=== PATIENT | female | born 1980 | race Two or more races ===

== ENCOUNTER 2024-06-17 12:27 | Emergency (ER) | payer OTHER ==
[~2024-06-17] VITALS: Ht 165.1 cm; Wt 97.5 kg
[2024-06-17] MEDS ORDERED: FAMOtidine 10 MG/ML (4ML VIAL) IV STA (13:31)
[2024-06-17] MEDS ORDERED: 0.9 % SODIUM CHLORIDE 1,000 ML IV STA (13:31)
[2024-06-17] MEDS ORDERED: FAMOTIDINE/PF 20 MG/2 ML VIAL ONE (14:05)
[2024-06-17 15:43] LABS: HEMATOCRIT 42.6 % (36.0-45.00); HEMOGLOBIN 14.3 g/dL (12.0-15.00); MEAN CELL VOLUME 87.4 fL (80.00-100.00); MEAN CORPUSCULAR HEMOGLOBIN 29.2 pg (27.00-32.0); MEAN CORPUSCULAR HGB CONC 33.5 g/dl (32.0-36.0); PLATELET COUNT 209 K/uL (150-450); RED BLOOD COUNT 4.88 M/uL (4.00-6.00); RED CELL DISTRIBUTION WIDTH 12.4 % (11.5-14.5)
[2024-06-17 16:21] LABS: CALCIUM 9.1 mg/dL (8.5-10.1); CREATININE SERUM 0.73 mg/dL (0.55-1.02); GFR 87.43; POTASSIUM 3.64 mEq/L (3.5-5.1)
[2024-06-17 17:45] LABS: URINE APPEARANCE Clear; URINE BILIRRUBIN Negative (NEGATIVE); URINE BLOOD Large; URINE COLOR Dark Yellow; URINE GLUCOSE Negative (NEGATIVE); URINE KETONE 15 (NEGATIVE); URINE LEUKOCYTE Negative; URINE NITRATE Negative; URINE PROTEIN >=1000 (NEGATIVE); URINE UROBILINOGEN 0.2 E.U./dl
[2024-06-17 17:51] LABS: URINE EPITHELIAL CELLS 34.1 uL (0.0-38.8); URINE RBC 663.3 uL (0.0-20.8); URINE WBC 43.8 uL (0.0-23.2)
[2024-06-17 18:12] LABS: URINE CAST 0.58 uL (0.0-1.40)
== END 2024-06-17 19:15 | disposition home or self-care (01) ==
LOC: ER 12:29
PROVIDERS: General Practice
DX: B34.9 Viral infection, unspecified (principal); E86.0 Dehydration; Z20.822 Contact with and (suspected) exposure to COVID-19